=== PATIENT | female | born 1945 | race Caucasian/White ===

== ENCOUNTER → 2016-03-04 | Outpatient (CLI) | payer MEDICARE, OTHER ==
--- NOTE | 2016-03-07 07:38 | MM ---
Reason for exam: screening (asymptomatic). Last mammogram was performed 1 year and 1 month ago. History: Patient is postmenopausal. Physical Findings: A clinical breast exam by your physician is recommended on an annual basis and results should be correlated with mammographic findings. MG 3D Screening Mammo W/Cad Bilateral CC and MLO view(s) were taken. Prior study comparison: February 09, 2015, bilateral MG screening mammo w CAD. December 11, 2013, bilateral MG diagnostic mammo w CAD JOHN. July 09, 2013, right breast MG diagnostic mammo RT w CAD. December 25, 2012, bilateral digital screening mammo w/CAD. There are scattered fibroglandular densities. There is chronic nodularity bilaterally. There is no discrete abnormality. ASSESSMENT: Benign, BI-RAD 2 RECOMMENDATION: Routine screening mammogram of both breasts in 1 year.
== END | disposition home or self-care (01) ==
LOC: RADMAMWWP 08:40
PROVIDERS: ATTEND Family Medicine
DX: Z12.31 Encounter for screening mammogram for malignant neoplasm of breast (principal)
CPT/HCPCS: 77052; 77063; G0202

== ENCOUNTER → 2017-03-27 | Outpatient (CLI) | payer MEDICARE, OTHER ==
--- NOTE | 2017-03-28 14:08 | MM ---
Reason for exam: screening (asymptomatic). Last mammogram was performed 1 year and 1 month ago. History: Patient is postmenopausal. Physical Findings: A clinical breast exam by your physician is recommended on an annual basis and results should be correlated with mammographic findings. MG 3D Screening Mammo W/Cad Bilateral CC and MLO view(s) were taken. Prior study comparison: March 04, 2016, bilateral MG 3d screening mammo w/cad. February 09, 2015, bilateral MG screening mammo w CAD. There are scattered fibroglandular densities. No suspicious abnormality. No significant changes when compared with prior studies. ASSESSMENT: Negative, BI-RAD 1 RECOMMENDATION: Routine screening mammogram of both breasts in 1 year.
== END | disposition home or self-care (01) ==
LOC: RADMAMWWP 13:29
PROVIDERS: ATTEND Family Medicine
DX: Z12.31 Encounter for screening mammogram for malignant neoplasm of breast (principal)
CPT/HCPCS: 77063; 77067

== ENCOUNTER → 2017-06-20 | Outpatient (CLI) | payer MEDICARE, OTHER ==
--- NOTE | 2017-06-20 08:56 | US ---
EXAMINATION TYPE: US abdomen complete DATE OF EXAM: 06/20/2017 COMPARISON: US, CT CLINICAL HISTORY: R10.33 periumbilical pain; RUQ pain EXAM MEASUREMENTS: Liver Length: 15.3 cm Gallbladder Wall: 0.1 cm CBD: 0.6 cm Spleen: 9.1 cm Right Kidney: 9.6 x 5.3 x 3.8 cm Left Kidney: 10.0 x 4.0 x 5.4 cm Pancreas: wnl Liver: wnl Gallbladder: wnl Evidence for sonographic Trujillo's sign: pain at rib areas bilaterally CBD: wnl Spleen: wnl Right Kidney: No hydronephrosis or masses seen Left Kidney: No hydronephrosis or masses seen Upper IVC: wnl Abd Aorta: ectatic appearance and intimal thickening is noted distally. Distal abdominal aorta measu res 2.8 cm AP dimension. IMPRESSION: 1. 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
== END | disposition home or self-care (01) ==
LOC: RADUSWWP 07:50
PROVIDERS: ATTEND Family Medicine
DX: I77.9 Disorder of arteries and arterioles, unspecified (principal)
CPT/HCPCS: 76700

== ENCOUNTER → 2017-09-20 | Outpatient (CLI) | payer MEDICARE, OTHER ==
--- NOTE | 2017-09-20 11:07 | US ---
EXAMINATION TYPE: US abdomen complete DATE OF EXAM: 09/20/2017 COMPARISON: US CLINICAL HISTORY: I71.4 abdominal aortic aneurysm w/o rupture. F/U previous (aorta) EXAM MEASUREMENTS: Liver Length: 15.7 cm Gallbladder Wall: 0.2 cm CBD: 0.1 cm Spleen: 8.1 cm Right Kidney: 10.3 x 4.5 x 4.6 cm Left Kidney: 9.9 x 3.9 x 4.6 cm Pancreas: wnl. Also see below. Liver: wnl Gallbladder: wnl Evidence for sonographic Trujillo's sign: No CBD: wnl Spleen: wnl Right Kidney: wnl Left Kidney: wnl Upper IVC: wnl Abd Aorta: wnl, greatest measurement 2.0 cm at distal portion Hypoechoic area near uncinate process of pancreas, anterior to aorta= 2.1 x 0.9 x 1.1 cm ?lymph nod e vs. lesion This was present on the comparison study of 06/20/2017. This may have been lengthened s lightly over the interval. Contrast CT abdomen is recommended for additional evaluation. Alternativel y MRI could be utilized. IMPRESSION: 1. Enlarging hypodensity adjacent to the uncinate process of the pancreas. Additional workup with con trast CT or MRI is recommended.
== END | disposition home or self-care (01) ==
LOC: RADUSWWP 07:31
PROVIDERS: ATTEND Family Medicine
DX: K86.89 Other specified diseases of pancreas (principal)
CPT/HCPCS: 76700

== ENCOUNTER → 2017-10-16 | Outpatient (CLI) | payer MEDICARE, OTHER ==
--- NOTE | 2017-10-17 03:27 | MR ---
EXAMINATION TYPE: MR abdomen wo/w con DATE OF EXAM: 10/16/2017 COMPARISON: None HISTORY: Abdominal pain CONTRAST: Standard multiplanar, multisequence MRI departmental protocol utilizing 6 mL intravenous gadolinium c ontrast. FINDINGS: There is mild lumbar levoscoliosis. Kidneys have normal size and contour. There is no hydro nephrosis. There is 1 cm cortical cyst lower pole right kidney. Gallbladder appears normal. Liver arianne ws no focal defect. Pancreatic duct appears normal. I see no evidence of a pancreatic mass. There is no sign of retroperitoneal adenopathy. There is no adrenal mass. Spleen has normal size and contour. Stomach appears normal. There is no evidence of pleural effusion. I see no pathologic enhancement. Th ere is uniform enhancement of the pancreas. There are some tortuous splenic vessels. IMPRESSION: Negative MR scan of the abdomen. No evidence of pancreatic mass.
== END | disposition home or self-care (01) ==
LOC: RADMRIMAIN 05:59
PROVIDERS: ATTEND Nurse Practitioner Family
DX: K86.89 Other specified diseases of pancreas (principal); Z01.818 Encounter for other preprocedural examination
CPT/HCPCS: 82565; 84520; 74183; 36415; A9581

== ENCOUNTER → 2018-04-02 | Outpatient (CLI) | payer MEDICARE, OTHER ==
--- NOTE | 2018-04-02 13:03 | BD ---
EXAMINATION TYPE: Axial Bone Density DATE OF EXAM: 04/02/2018 CLINICAL HISTORY: Postmenopausal female. Height: 63 inches Weight: 134 Comparison: Prior DEXA bone scan February 09, 2015 FRAX RISK QUESTIONS: Alcohol (3 or more units per day): no Family History (Parent hip fracture): yes, mother Glucocorticoids (More than 3mos): no (Ex: prednisone, prednisolone, methylprednisolone, dexamethasone, and hydrocortisone). History of Fracture in Adulthood: no Secondary Osteoporosis: 1. Type 1 Diabetes: no 2. Hyperthyroidism: no 3. Menopause before 45: no 4. Malnutrition: no 5. Chronic liver disease: no Rheumatoid Arthritis: no Current Tobacco Use: no RISK FACTORS HISTORY OF: Family History of Osteoporosis: yes Active: yes Diet low in dairy products/other sources of calcium: no Postmenopausal woman: yes Take estrogen and/or progesterone medications: no Lost more than 2 inches in height since high school: no Frequent falls: no Poor Health: no Hyperparathyroidism: no Adrenal Insufficiency: no MEDICATIONS: Thyroid Medications: yes Which medication: Synthroid How Long: about 20 years Osteoporosis Medications: no Additional Medications: calcium & Vitamin D ; cholesterol meds Additional History: arthritis EXAM MEASUREMENTS: Bone mineral densitometry was performed using the [employer] System. Bone mineral density as measured about the Lumbar spine is: ----- L1-L4(G/cm2): 1.175 T Score Values are as follows: ----- L2: -0.1 ----- L3: 0.6 ----- L4: -0.2 ----- L1-L4: 0.0 Bone mineral density has: Decreased -1.5% since study of: 02/09/2015 Bone mineral density about the R hip (g/cm2): 0.808 Bone mineral density about the L hip (g/cm2): 0.762 T Score values are as follows: -----R Neck: -1.7 -----L Neck: -2.0 -----R Total: -1.8 -----L Total: -2.2 Bone mineral density has: Decreased -2.6% since study of: 02/09/2015 IMPRESSION: Osteopenia (T Score between -2.5 and -1) persist overall in both hips. Bone density decreased or dimi nished from prior. There remains slightly increased risk of fracture and the patient may be considered for treatment. Re-Screen 2-5 years. NOTE: T-SCORE=SD OF THE YOUNG ADULT MEAN.
--- NOTE | 2018-04-03 09:55 | MM ---
Reason for exam: screening (asymptomatic). Last mammogram was performed 1 year ago. History: Patient is postmenopausal. Physical Findings: A clinical breast exam by your physician is recommended on an annual basis and results should be correlated with mammographic findings. MG 3D Screening Mammo W/Cad Bilateral CC and MLO view(s) were taken. Prior study comparison: March 27, 2017, bilateral MG 3d screening mammo w/cad. March 04, 2016, bilateral MG 3d screening mammo w/cad. There are scattered fibroglandular densities. There is no discrete abnormality. No significant changes when compared with prior studies. ASSESSMENT: Negative, BI-RAD 1 RECOMMENDATION: Routine screening mammogram of both breasts in 1 year.
== END | disposition home or self-care (01) ==
LOC: RADBDWWP 09:03
PROVIDERS: ATTEND Family Medicine
DX: Z12.31 Encounter for screening mammogram for malignant neoplasm of breast (principal); M85.851 Other specified disorders of bone density and structure, right thigh; M85.852 Other specified disorders of bone density and structure, left thigh
CPT/HCPCS: 77063; 77067; 77080

== ENCOUNTER → 2020-06-09 | Outpatient (CLI) | payer MEDICARE ==
--- NOTE | 2020-06-11 13:31 | MM ---
Reason for exam: screening (asymptomatic). Last mammogram was performed 1 year and 2 months ago. History: Patient is postmenopausal. Physical Findings: A clinical breast exam by your physician is recommended on an annual basis and results should be correlated with mammographic findings. MG 3D Screening Mammo W/Cad Bilateral CC and MLO view(s) were taken. Prior study comparison: April 04, 2019, bilateral MG 3d screening mammo w/cad. April 02, 2018, bilateral MG 3d screening mammo w/cad. There are scattered fibroglandular densities. No significant changes when compared with prior studies. ASSESSMENT: Benign, BI-RAD 2 RECOMMENDATION: Routine screening mammogram of both breasts in 1 year.
== END | disposition home or self-care (01) ==
LOC: RADMAMWWP 12:57
PROVIDERS: ATTEND Family Medicine
DX: Z12.31 Encounter for screening mammogram for malignant neoplasm of breast (principal); Z78.0 Asymptomatic menopausal state
CPT/HCPCS: 77063; 77067

== ENCOUNTER → 2021-06-23 | Outpatient (CLI) | payer MEDICARE ==
--- NOTE | 2021-06-23 19:51 | BD ---
EXAMINATION TYPE: Axial Bone Density DATE OF EXAM: 06/23/2021 COMPARISON: NONE CLINICAL HISTORY: 75 year old Female. ICD-10 CODE: Z78.0 Post menopausal Height: 63 Weight: 143.2 FRAX RISK QUESTIONS: Alcohol (3 or more units per day): no Family History (Parent hip fracture): no Glucocorticoids (More than 3mos): no (Ex: prednisone, prednisolone, methylprednisolone, dexamethasone, and hydrocortisone). History of Fracture in Adulthood: no Secondary Osteoporosis: 1. Type 1 Diabetes: no 2. Hyperthyroidism: no 3. Menopause before 45: no 4. Malnutrition: no 5. Chronic liver disease: no Rheumatoid Arthritis: no Current Tobacco Use: no RISK FACTORS HISTORY OF: Surgery to Spine/Hip(right/left)/Wrist (right/left): no Family History of Osteoporosis: yes Active: yes Diet low in dairy products/other sources of calcium: no Postmenopausal woman: yes Lost more than 2 inches in height since high school: no MEDICATIONS: Thyroid Medications: levothyroxine How Lon years Additional History: EXAM MEASUREMENTS: Bone mineral densitometry was performed using the [employer] System. Bone mineral density as measured about the Lumbar spine is: ----- L1-L4(G/cm2): 1.128 T Score Values are as follows: ----- L1: 1.3 ----- L2: -0.6 ----- L3: 0.3 ----- L4: -0.3 ----- L1-L4: -0.4 Bone mineral density has: decreased -3.2 % since study of: 04.02.2018 Bone mineral density about the R hip (g/cm2): 0.776 Bone mineral density about the L hip (g/cm2): 0.715 T Score values are as follows: -----R Neck: -1.9 -----L Neck: -2.3 -----R Total: -1.9 -----L Total: -2.3 Bone mineral density has: decreased -2.4 % since study of: 04.02.2018 FRAX%s: The graph provided illustrates a 16.3% chance for a major osteoporotic fx and a 5.0% chance f or the hips probability for fx in 10 years time. IMPRESSION: Osteopenia (T Score between -2.5 and -1) remains present. There is slightly increased risk of fracture and the patient may be considered for treatment. Re-Screen 2-5 years. NOTE: T-SCORE=SD OF THE YOUNG ADULT MEAN.
--- NOTE | 2021-06-24 12:58 | MM ---
Reason for exam: screening (asymptomatic). Last mammogram was performed 1 year ago. History: Patient is postmenopausal. Physical Findings: A clinical breast exam by your physician is recommended on an annual basis and results should be correlated with mammographic findings. MG 3D Screening Mammo W/Cad Bilateral CC and MLO view(s) were taken. Prior study comparison: June 09, 2020, bilateral MG 3d screening mammo w/cad. April 04, 2019, bilateral MG 3d screening mammo w/cad. There are scattered fibroglandular densities. There is no discrete abnormality. ASSESSMENT: Negative, BI-RAD 1 RECOMMENDATION: Routine screening mammogram of both breasts in 1 year.
== END | disposition home or self-care (01) ==
LOC: RADMAMWWP 14:19
PROVIDERS: ATTEND Family Medicine
DX: Z12.31 Encounter for screening mammogram for malignant neoplasm of breast (principal); M85.89 Other specified disorders of bone density and structure, multiple sites; Z78.0 Asymptomatic menopausal state
CPT/HCPCS: 77063; 77067; 77080

== ENCOUNTER → 2022-07-05 | Outpatient (CLI) | payer MEDICARE ==
--- NOTE | 2022-07-06 08:20 | MM ---
Reason for Exam: Screening (asymptomatic). Last mammogram was performed 1 year(s) and 1 month(s) ago. Patient History: Menarche at age 12. First Full-Term at age 20. Postmenopausal. Maternal aunt had endometrial cancer, age 80. Risk Values: Kemi 5 year model risk: 1.6%. NCI Lifetime model risk: 3.2%. Prior Study Comparison: 03/04/2016 Bilateral Screening Mammogram, [facility]. 03/27/2017 Bilateral Screening Mammogram, [facility]. 04/02/2018 Bilateral Screening Mammogram, [facility]. 04/04/2019 Bilateral Screening Mammogram, [facility]. 06/09/2020 Bilateral Screening Mammogram, [facility]. 06/23/2021 Bilateral Screening Mammogram, [facility]. Tissue Density: There are scattered fibroglandular densities. Findings: Analyzed By CAD. There is no suspicious group of microcalcifications or new suspicious mass in either breast. Stable chronic nodularity within the left breast. Overall Assessment: Benign, BI-RAD 2 Management: Screening Mammogram of both breasts in 1 year. A clinical breast exam by your physician is recommended on an annual basis and results should be correlated with mammographic findings. Electronically signed and approved by: Mega Roman D.O.
== END | disposition home or self-care (01) ==
LOC: RADMAMWWP 09:35
PROVIDERS: ATTEND Family Medicine
DX: Z12.31 Encounter for screening mammogram for malignant neoplasm of breast (principal); Z78.0 Asymptomatic menopausal state
CPT/HCPCS: 77063; 77067

== ENCOUNTER → 2022-12-19 | Outpatient (CLI) | payer MEDICARE ==
--- NOTE | 2022-12-19 15:11 | CA ---
Transthoracic Echo Report Name: Bushra Arango Age: 77 Gender: F : 1945 Exam Date: 12/19/2022 13:56 Exam Location: [place] [facility] Ht (in): 64 Wt (lb): 133 Ordering Physician: Sofya Pollack DO Attending/Referring Phys: Elyssa Chavez [facility] Worker Mimi Almonte [facility] Procedure CPT: Indications: R00.2 PALPITATIONS; R42 Dizziness Cardiac Hx: Technical Quality: Fair Contrast 1: Total Dose (mL): Contrast 2: Total Dose (mL): MEASUREMENTS (Male / Female) Normal Values 2D ECHO LV Diastolic Diameter PLAX 4.1 cm 4.2 - 5.9 / 3.9 - 5.3 cm LV Systolic Diameter PLAX 2.7 cm IVS Diastolic Thickness 0.8 cm 0.6 - 1.0 / 0.6 - 0.9 cm LVPW Diastolic Thickness 0.8 cm 0.6 - 1.0 / 0.6 - 0.9 cm LV Relative Wall Thickness 0.4 LVOT Diameter 2.0 cm M-MODE Aortic Root Diameter MM 3.3 cm AV Cusp Separation MM 1.9 cm DOPPLER AV Peak Velocity 110.1 cm/s AV Peak Gradient 4.8 mmHg AV Mean Velocity 78.3 cm/s AV Mean Gradient 2.7 mmHg AV Velocity Time Integral 24.2 cm LVOT Peak Velocity 80.8 cm/s LVOT Peak Gradient 2.6 mmHg LVOT Velocity Time Integral 19.7 cm LVOT Stroke Volume 61.8 cm??? LVOT Stroke Volume Index 37.6 ml/m??? LVOT Cardiac Index 2313.2 cm???/min???m??? AV Area Cont Eq vti 2.6 cm??? AV Area Cont Eq pk 2.3 cm??? MR Peak Velocity 500.4 cm/s MR Peak Gradient 100.2 mmHg Mitral E Point Velocity 78.8 cm/s Mitral A Point Velocity 84.2 cm/s Mitral E to A Ratio 0.9 MV Deceleration Time 190.1 ms LV E' Lateral Velocity 6.1 cm/s Mitral E to LV E' Lateral Ratio 12.9 LV E' Septal Velocity 6.0 cm/s Mitral E to LV E' Septal Ratio 13.1 TR Peak Velocity 205.1 cm/s TR Peak Gradient 16.8 mmHg Right Atrial Pressure 3.0 mmHg Pulmonary Artery Systolic Pressu 19.8 mmHg Right Ventricular Systolic Press 19.8 mmHg FINDINGS Left Ventricle Left ventricular wall thickness normal. Left ventricular cavity size normal. Normal left ventricular systolic function with no obvious regional wall motion abnormalities. Left ventricular ejection fraction is estimated at 50-55%. Right Ventricle Normal right ventricular size. Right Atrium Normal right atrial size. Left Atrium Normal left atrial size. Mitral Valve Mitral valve thickened. Mild mitral regurgitation. Aortic Valve Aortic valve not well visualized. No aortic valve stenosis or regurgitation. Tricuspid Valve Structurally normal tricuspid valve. Trace tricuspid regurgitation. Pulmonic Valve Pulmonic valve not well visualized. Pericardium No pericardial effusion. Aorta Normal size aortic root. CONCLUSIONS Normal LV size and systolic function. LVEF estimated at 55% No obvious regional wall motion abnormality Mild MR No significant chamber size abnormality No pericardial effusion Previewed by: Dr Basil Soto (Electronically Signed) Final Date: 19 December 2022 15:11
== END | disposition home or self-care (01) ==
LOC: RADECHMAIN 13:46
PROVIDERS: ATTEND Family Medicine
DX: R00.2 Palpitations (principal); R42 Dizziness and giddiness
CPT/HCPCS: 93306

== ENCOUNTER → 2023-02-07 | Outpatient (CLI) | payer MEDICARE ==
--- NOTE | 2023-02-07 12:12 | CA ---
Exercise Stress Test Report Name: Bushra Arango Exam Date: 02/07/2023 11:20 Exam Location: [place] Stress Ht (in): 64 Wt (lb): 134 BSA: 1.65 Ordering Phys: Sofya Pollack DO Referring Phys: Elyssa Chavez Technologist: RENATA HOFF Age: 77 Gender: F : 1945 Procedure CPT: Indications: R00.2 palpitations ICD-10 Codes: Patient History: PALP, CHOL, FAMILY HX Medications: SEE LIST Meds past 24 hrs: Pretest Chest Pain: STRESS TEST Sreekanth Protocol Exercise Duration (min:sec): 03:[address] Depressions (mm): Angina Score: Bragg Score: Resting HR (bpm): 72 Peak HR (bpm): 131 Resting BP (mmHg): 153 / 89 Peak BP (mmHg): 198 / 76 MPHR: 143 Target HR: 122 % MPHR: 92 METS: 4.7 Total Dose: Peak Dose: Atropine: Double Product: 14463 BP Response: Stress Termination: Reached target heart rate Stress Symptoms: Stress Summary: ECG ANALYSIS Resting ECG: Normal sinus rhythm, normal axis, heart rate 68 bpm Stress ECG: No significant ST-T wave changes diagnostic for ischemia. Occasional PVCs. No sustained arrhythmias CONCLUSIONS Poor exercise tolerance for patient's age achieving only 4.7 METS Nonischemic ECG response to treadmill exercise Normal clinical and hemodynamic response to exercise Overall normal treadmill stress test Dr Basil Soto (Electronically Signed) Final Date: 07 February 2023 12:10
== END | disposition home or self-care (01) ==
LOC: RADNMMAIN 09:58
PROVIDERS: ATTEND Family Medicine
DX: R00.2 Palpitations (principal); R07.9 Chest pain, unspecified
CPT/HCPCS: 93017

== ENCOUNTER → 2023-07-11 | Outpatient (CLI) | payer MEDICARE ==
--- NOTE | 2023-07-12 18:40 | MM ---
Reason for Exam: Screening (asymptomatic). Last screening mammogram was performed 12 month(s) ago. Patient History: Menarche at age 12. First Full-Term at age 20. Postmenopausal. Maternal aunt had endometrial cancer, age 80. Risk Values: Kemi 5 year model risk: 1.5%. NCI Lifetime model risk: 2.8%. Prior Study Comparison: 06/09/2020 Bilateral Screening Mammogram, [facility]. 06/23/2021 Bilateral Screening Mammogram, [facility]. 07/05/2022 Bilateral MG 3D screening mammo w/cad, [facility]. Tissue Density: There are scattered areas of fibroglandular density. Findings: Analyzed By CAD. There is no suspicious group of microcalcifications or new suspicious mass in either breast. Overall Assessment: Negative, BI-RAD 1 Management: Screening Mammogram of both breasts in 1 year. . Patient should continue monthly self-breast exams. A clinical breast exam by your physician is recommended on an annual basis. This exam should not preclude additional follow-up of suspicious palpable abnormalities. Note on Kemi scores and lifetime risk: 1. A Kemi score greater than 3% is considered moderate risk. If this is the case, consider specialist referral to assess eligibility for a risk reducing agent. 2. If overall lifetime risk for the development of breast cancer is 20% or higher, the patient may qualify for future screening with alternating mammogram and breast MRI. Electronically signed and approved by: Sergio Kramer M.D. Radiologist
== END | disposition home or self-care (01) ==
LOC: RADMAMWWP 09:05
PROVIDERS: ATTEND Family Medicine
DX: Z12.31 Encounter for screening mammogram for malignant neoplasm of breast (principal); Z78.0 Asymptomatic menopausal state
CPT/HCPCS: 77063; 77067

== ENCOUNTER → 2024-07-16 | Outpatient (CLI) | payer MEDICARE ==
--- NOTE | 2024-07-16 12:03 | MM ---
Reason for Exam: Screening (asymptomatic). Last screening mammogram was performed 12 month(s) ago. Patient History: Menarche at age 12. First Full-Term at age 20. Postmenopausal. Maternal aunt had endometrial cancer, age 80. Risk Values: Kemi 5 year model risk: 1.5%. NCI Lifetime model risk: 2.5%. Prior Study Comparison: 06/23/2021 Bilateral Screening Mammogram, [facility]. 07/05/2022 Bilateral MG 3D screening mammo w/cad, [facility]. 07/11/2023 Bilateral MG 3D screening mammo w/cad, [facility]. Tissue Density: There are scattered areas of fibroglandular density. Findings: Analyzed By CAD. Right breast: There is no suspicious group of microcalcifications or new suspicious mass. Benign-appearing calcifications right breast. Left breast: There is no suspicious group of microcalcifications or new suspicious mass. Overall Assessment: Benign, BI-RAD 2 Management: Screening Mammogram of both breasts in [address] [facility] will attempt to contact patient to return for supplemental views and ultrasound if indicated. Patient should continue monthly self-breast exams. A clinical breast exam by your physician is recommended on an annual basis. This exam should not preclude additional follow-up of suspicious palpable abnormalities. Note on Kemi scores and lifetime risk: 1. A Kemi score greater than 3% is considered moderate risk. If this is the case, consider specialist referral to assess eligibility for a risk reducing agent. 2. If overall lifetime risk for the development of breast cancer is 20% or higher, the patient may qualify for future screening with alternating mammogram and breast MRI. [facility], , 07/16/2024 11:59 AM. Electronically signed and approved by: George Cooper DO
--- NOTE | 2024-07-16 14:04 | BD ---
EXAMINATION TYPE: Axial Bone Density DATE OF EXAM: 07/16/2024 CLINICAL HISTORY: 79 years old Female. ICD-10 CODE: Z78.0 ASYMPTOMATIC MENOPAUSAL STA , Additional History: Height: 5 ft 2 1/2 in Weight: 130 FRAX RISK QUESTIONS: Alcohol (3 or more units per day): no Family History (Parent hip fracture): no Glucocorticoids (More than 3mos): no (Ex: prednisone, prednisolone, methylprednisolone, dexamethasone, and hydrocortisone). History of Fracture in Adulthood: no Secondary Osteoporosis: 1. Type 1 Diabetes: no 2. Hyperthyroidism: no 3. Menopause before 45: yes 4. Malnutrition: no 5. Chronic liver disease: no Rheumatoid Arthritis: no Current Tobacco Use: no RISK FACTORS HISTORY OF: Surgery to Spine/Hip(right/left)/Wrist (right/left): no MEDICATIONS: Thyroid Medications: yes Which medication: levothyroxine How Lon years Osteoporosis Medications: none EXAM MEASUREMENTS: Bone mineral densitometry was performed using the [employer]. Bone mineral density as measured about the Lumbar spine is: ----- L1-L4(G/cm2): 1.152 T Score Values are as follows: ----- L1: -1.4 ----- L2: -0.9 ----- L3: 0.2 ----- L4: 0.2 ----- L1-L4: -0.2 Z Score Values are as follows: ----- L1: 0.6 ----- L2: 1.1 ----- L3: 2.2 ----- L4: 2.2 ----- L1-L4: 1.8 Bone mineral density has: increased 2.1 % since study of: 2021 Bone mineral density about the R hip (g/cm2): 0.777 Bone mineral density about the L hip (g/cm2): 0.700 T Score values are as follows: -----R Neck: -1.9 -----L Neck: -2.4 -----R Total: -2.3 -----L Total: -2.6 Z Score values are as follows: -----R Neck: 0.4 -----L Neck: -0.2 -----R Total: -0.2 -----L Total: -0.5 Bone mineral density has: decreased -4.6 % since study of: 2021 FRAX%s: The graph provided illustrates a 17.7 % chance for a major osteoporotic fx and a 6.1 % chance for the hips probability for fx in 10 years time. IMPRESSION: Osteopenia (T Score between -2.5 and -1). There is slightly increased risk of fracture and the patient may be considered for treatment. Re-Screen 2-5 years. NOTE: T-SCORE=SD OF THE YOUNG ADULT MEAN. [facility], , 07/16/2024 2:02 PM
== END | disposition home or self-care (01) ==
LOC: RADMAMWWP 09:23
PROVIDERS: ATTEND Family Medicine
DX: Z12.31 Encounter for screening mammogram for malignant neoplasm of breast (principal); R92.323 Mammographic fibroglandular density, bilateral breasts; R92.1 Mammographic calcification found on diagnostic imaging of breast; M85.89 Other specified disorders of bone density and structure, multiple sites; Z78.0 Asymptomatic menopausal state
CPT/HCPCS: 77063; 77067; 77080

== ENCOUNTER → 2024-09-27 | Outpatient (CLI) | payer MEDICARE ==
--- NOTE | 2024-09-27 13:44 | CT ---
EXAMINATION TYPE: CT brain wo con DATE OF EXAM: 09/27/2024 1:27 PM COMPARISON: None. CLINICAL INDICATION: Female, 79 years old with history of R46.4 SLOWNESS AND POOR RESP R47.81 SLURRED SPEECH, slurred speech, black-outs TECHNIQUE: CT of the brain is performed utilizing 3 mm thick sections through the posterior fossa and 3 mm thick sections through the remaining calvarium. Study is performed within 24 hours of arrival to the hospital. Contrast used: mL of , (none if empty) CT DLP: 1219 mGycm, Automated exposure control for dose reduction was used. FINDINGS: No abnormal hyperdensity is present to suggest an acute intracranial hemorrhage. No mass lesion is evident. No acute infarcts are evident. Periventricular white matter hypodensity is present, likely on the bas is of chronic white matter ischemic changes Ventricles and sulci are mildly prominent for the patient age. Some minimal mucosal thickening within the anterior medial right maxillary sinus. Remaining paranasal sinuses and mastoid air cells are clear. Right frontal sinus is aplastic IMPRESSION: 1. No acute intracranial process. Follow up MRI can be performed as clinically indicated. 2. Chronic appearing periventricular white matter ischemic change with age-related atrophy [facility], Workstation: [facility], 09/27/2024 1:41 PM
== END | disposition home or self-care (01) ==
LOC: RADCTMAIN 13:07
PROVIDERS: ATTEND Nurse Practitioner Family
DX: I67.82 Cerebral ischemia (principal); R47.81 Slurred speech; R46.4 Slowness and poor responsiveness
CPT/HCPCS: 70450